=== PATIENT | female | born 1995 | race Caucasian/White ===

== ENCOUNTER 2018-10-27 15:15 | Emergency (ER) ==
[2018-10-27 15:25] VITALS: BP 142/88; TEMP 98.7; BMI 11.3
[2018-10-27] MEDS: SODIUM CHLORIDE 1,000 ML IV STA (16:16)
[2018-10-27] MEDS: PROTONIX IV IVP STA (16:17)
[2018-10-27] MEDS: PEPCID IVP STA (16:17)
[2018-10-27] MEDS: PHENERGAN 25 MG/ML VIAL 12.5 MG in SODIUM CHLORIDE 50 ML IV STA (16:18)
[2018-10-27] MEDS: PHENERGAN 25 MG/ML VIAL ONE (16:19)
--- NOTE | 2018-10-27 17:00 | CT ---
EXAM: CT abdomen and pelvis without intravenous contrast 10/27/2018. Sagittal and coronal reformatt ed images obtained HISTORY: Abdominal pain COMPARISON: None. FINDINGS: The liver shows no acute abnormality the gallbladder has been removed. The adrenal glands and kidneys show no acute abnormality. No hydronephrosis. The spleen and pancreas show no acute process. There is no bowel obstruction. The appendix is cheryl l. Unremarkable urinary bladder. Tampon is in place. No free air or free fluid. IMPRESSION: 1. No urinary or bowel obstruction and normal appendix. 2. Tampon is in place. 3. No acute inflammatory process identified within the abdomen or pelvis within the limitation of a noncontrast enhanced examination.
--- NOTE | 2018-10-27 18:06 | ED.PDOC ---
General ED Provider: Dr. JEN ANNE-ER Chief Complaint: Psychiatric Complaint Stated Complaint: my belly hurts--i drank a lot of etoh last night Time Seen by Physician: 15:20 Mode of Arrival: Carried Information Source: Patient, Other Exam Limitations: No limitations Nursing and Triage Documentation Reviewed and Agree: Yes Does patient meet sepsis criteria?: No System Inflammatory Response Syndrome: Not Applicable Sepsis Protocol: For patient's 13 years and over: Temp is 96.8 and below OR 101 and greater Pulse >90 BPM Resp >20/minute Acutely Altered Mental Status Are patient's symptoms suggestive of a new infection, such as: -Pneumonia -Skin, Soft Tissue -Endocarditis -UTI -Bone, Joint Infection -Implantable Device -Acute Abdominal Infection -Wound Infection -Meningitis -Blood Stream Catheter Infection -Unknown GI Complaint Exam - Abdominal Pain Complaint/Exam Onset: Gradual Duration: 3 hours Symptoms Are: Still present Timing: Constant Initial Severity: Mild Current Severity: Mild Location of Pain: Diffuse Character: Reports: Dull, Aching, Burning, Cramping Alleviating: Reports: Spontaneous resolution Associated Signs and Symptoms: Denies: Diaphoresis, Fever, Cough, Chest pain, Dizziness, Back pain, Constipation, Blood in stool, Dysuria, Urinary frequency, Decreased urine output, Decreased appetite, Vaginal bleeding, Vaginal discharge , Nausea, Vomiting, Diarrhea, Sore throat, Decreased activity Differential Diagnoses: Other Review of Systems - Review Of Systems Constitutional: Reports: No symptoms Eyes: Reports: No symptoms Ears, Nose, Mouth, Throat: Reports: No symptoms Respiratory: Reports: No symptoms Cardiac: Reports: No symptoms GI: Reports: Abdominal pain, Nausea : Reports: No symptoms Musculoskeletal: Reports: No symptoms Skin: Reports: No symptoms Neurological: Reports: No symptoms Endocrine: Reports: No symptoms Hematologic/Lymphatic: Reports: No symptoms All Other Systems: Reviewed and Negative Past Medical History - Past Medical History Previously Healthy: No Endocrine: Reports: Unknown Cardiovascular: Reports: Unknown Respiratory: Reports: Unknown Hematological: Reports: Unknown Gastrointestinal: Reports: Unknown Genitourinary: Reports: Unknown Neuro/Psych: Reports: Unknown Musculoskeletal: Reports: Unknown Cancer: Reports: Unknown Last Menstrual Period: NOW - Surgical History General Surgical History: Reports: Unknown - Family History Family History: Reports: Unknown - Social History Smoking Status: Vaping Hx Substance Use: No Alcohol Screening: Occasionally Physical Exam - Physical Exam Appearance: Well-appearing, No pain distress, Well-nourished Pain Distress: Mild Eyes: ROBER, EOMI, Conjunctiva clear ENT: Ears normal, Nose normal, Oropharynx normal Neck: Supple Respiratory: Airway patent, Breath sounds clear, Breath sounds equal, Respirations nonlabored Cardiovascular: RRR, Pulses normal, No rub, No murmur GI/: Soft, Tender Musculoskeletal: Normal strength, ROM intact, No edema, No calf tenderness Skin: Warm, Dry, Normal color Neurological: Sensation intact, Motor intact, Reflexes intact, Cranial nerves intact, Alert, Oriented Psychiatric: Affect appropriate, Mood appropriate Interpretation - Radiology Interpretation Radiology Interpretation By: Radiologist Radiology Results: Negative Exam Interpreted: CT Scan Re-Evaluation - Re-Evaluation Time of Re-Evaluation: 18:06 Status: Improved Vital Signs Stable: Yes Pain Level: 1 Appearance: NAD Lungs: Clear Skin: Warm and Dry Neuro: Alert and Oriented X3 CV: RRR Critical Care Note - Critical Care Note Total Time (mins): 0 Course - Course Hematology/Chemistry: 10/27/18 15:43 10/27/18 15:43 Orders, Labs, Meds: Lab Review 10/27/18 10/27/18 10/27/18 15:43 15:43 15:43 WBC 7.80 RBC 3.85 L Hgb 12.0 Hct 36.1 L MCV 93.8 MCH 31.2 H MCHC 33.2 RDW Coeff of Tangela 13.0 Plt Count 300 Immature Gran % (Auto) 0.3 Neut % (Auto) 70.8 Lymph % (Auto) 20.8 [place] % (Auto) 6.3 Eos % (Auto) 0.9 Baso % (Auto) 0.9 Immature Gran # (Auto) 0.0 Neut # (Auto) 5.5 Lymph # (Auto) 1.6 [place] # (Auto) 0.5 Eos # (Auto) 0.1 Baso # (Auto) 0.1 ESR 5 Sodium 140.2 Potassium 4.00 Chloride 105.5 Carbon Dioxide 23.2 Anion Gap 15.50 BUN 12.1 Creatinine 0.65 Estimated GFR (MDRD) 112.00 BUN/Creatinine Ratio 18.61 Glucose 98.8 Calcium 9.31 Total Bilirubin 0.30 AST 29.3 ALT 17.6 Alkaline Phosphatase 64.0 Total Protein 6.90 Albumin 4.28 Globulin 2.62 Albumin/Globulin Ratio 1.63 Amylase 111.3 H Lipase 54.5 Serum , Qual Negative Urine Color Urine Clarity Urine pH Ur Specific [place] Urine Protein Urine Glucose (UA) Urine Ketones Urine Blood Urine Nitrite Urine Bilirubin Urine Urobilinogen Ur Leukocyte Esterase Urine Microscopic RBC Urine Microscopic WBC Ur Squamous Epith Cells Ur Transition Epith Cell Urine Bacteria Urine Opiates Screen Ur Oxycodone Screen Urine Methadone Screen Ur Propoxyphene Screen Ur Barbiturates Screen U Tricyclic Antidepress Ur Phencyclidine Scrn Ur Amphetamine Screen U Methamphetamines Scrn U Benzodiazepines Scrn Urine Cocaine Screen U Cannabinoids Screen Plasma/Serum Alcohol 10/27/18 10/27/18 10/27/18 15:43 17:34 17:34 WBC RBC Hgb Hct MCV MCH MCHC RDW Coeff of Tangela Plt Count Immature Gran % (Auto) Neut % (Auto) Lymph % (Auto) [place] % (Auto) Eos % (Auto) Baso % (Auto) Immature Gran # (Auto) Neut # (Auto) Lymph # (Auto) [place] # (Auto) Eos # (Auto) Baso # (Auto) ESR Sodium Potassium Chloride Carbon Dioxide Anion Gap BUN Creatinine Estimated GFR (MDRD) BUN/Creatinine Ratio Glucose Calcium Total Bilirubin AST ALT Alkaline Phosphatase Total Protein Albumin Globulin Albumin/Globulin Ratio Amylase Lipase Serum , Qual Urine Color Yellow Urine Clarity Clear Urine pH 7.0 Ur Specific [place] 1.015 Urine Protein Negative Urine Glucose (UA) Negative Urine Ketones Negative Urine Blood Trace-intact Urine Nitrite Negative Urine Bilirubin Negative Urine Urobilinogen 0.2 Ur Leukocyte Esterase Negative Urine Microscopic RBC 5-10 Urine Microscopic WBC 0-2 Ur Squamous Epith Cells 10-20 Ur Transition Epith Cell 0-2 Urine Bacteria Trace Urine Opiates Screen Negative Ur Oxycodone Screen Negative Urine Methadone Screen Negative Ur Propoxyphene Screen Negative Ur Barbiturates Screen Negative U Tricyclic Antidepress Negative Ur Phencyclidine Scrn Negative Ur Amphetamine Screen Negative U Methamphetamines Scrn Negative U Benzodiazepines Scrn Negative Urine Cocaine Screen Negative U Cannabinoids Screen Negative Plasma/Serum Alcohol < 10.0 Orders Category Date Time Status IV [ED IV/MEDIPORT/POWERPORT] .ONCE EMERGENCY 10/27/18 15:34 Active AMYLASE Stat LAB 10/27/18 15:43 Completed CBC W/ AUTO DIFF Stat LAB 10/27/18 15:43 Completed COMPREHENSIVE METABOLIC PANEL Stat LAB 10/27/18 15:43 Completed ESR Stat LAB 10/27/18 15:43 Completed ETOH LEVEL [BLOOD ALCOHOL] Stat LAB 10/27/18 15:43 Completed LIPASE Stat LAB 10/27/18 15:43 Completed SERUM Stat LAB 10/27/18 15:43 Completed URINALYSIS C & S IF INDICATED Stat LAB 10/27/18 17:34 Completed URINE DRUG SCREEN (RAPID FOR ED) [DRUG SCREEN, URINE, LAB 10/27/18 17:34 Completed RAPID] Stat 0.9 % Sodium Chloride [Saline Flush] MEDS 10/27/18 15:34 Ordered 1 syr IVF PRN PRN Famotidine Inj [Pepcid] MEDS 10/27/18 15:35 Discontinued 20 mg IVP ONCE STA Pantoprazole Sodium [Protonix IV] MEDS 10/27/18 15:34 Discontinued 40 mg IVP ONCE STA Promethazine HCl [Phenergan 25 mg/ml Vial] MEDS 10/27/18 15:54 Discontinued 25 mg .ROUTE .STK-MED ONE Promethazine HCl [Phenergan 25 mg/ml Vial] 12.5 mg MEDS 10/27/18 15:35 Discontinued 0.9 % Sodium Chloride [Sodium Chloride] 50 ml IV ONCE Sodium Chloride 0.9% [Sodium Chloride] 1,000 ml MEDS 10/27/18 15:[address] ABDOMEN/PELVIS WO CONTRAST Stat RADS 10/27/18 15:35 Completed Medications Generic Name Dose Route Start Last Admin Trade Name Freq PRN Reason Stop Dose Admin Sodium Chloride 1 syr 10/27/18 15:34 10/27/18 16:16 Saline Flush IVF 1 syr PRN PRN Administration To flush IV Discontinued Medications Generic Name Dose Route Start Last Admin Trade Name Freq PRN Reason Stop Dose Admin Famotidine 20 mg 10/27/18 15:35 10/27/18 16:17 Pepcid IVP 10/27/18 15:36 20 mg ONCE STA Administration Promethazine HCl 12.5 mg/ 50.5 mls @ 75 mls/hr 10/27/18 15:35 10/27/18 16:18 Sodium Chloride IV 10/27/18 16:15 75 mls/hr ONCE STA Administration Sodium Chloride 1,000 mls @ 500 mls/hr 10/27/18 15:34 10/27/18 16:16 Sodium Chloride IV 10/27/18 17:33 500 mls/hr BOLUS STA Administration Pantoprazole Sodium 40 mg 10/27/18 15:34 10/27/18 16:17 Protonix Iv IVP 10/27/18 15:35 40 mg ONCE STA Administration Vital Signs: Temp Pulse Resp BP Pulse Ox 10/27/18 15:17 98.7 F 120 H 40 H 142/88 H 98 Departure - Departure Time of Disposition: 18:06 Disposition: HOME SELF-CARE Discharge Problem: Gastritis Qualifiers: Gastritis type: alcoholic Chronicity: acute Gastritis bleeding: without bleeding Qualified Code(s): K29.20 - Alcoholic gastritis without bleeding Instructions: Gastritis (ED) Condition: Good Pt referred to PMD for follow-up: Yes IPMP verified?: No Additional Instructions: zantac 150mg bid #30--drink plenty of fluids--f/u with pcp Allergies/Adverse Reactions: Allergies morphine Adverse Reaction (Verified 10/27/18 15:25) Home Medications: Ambulatory Orders Buspirone HCl [Buspar] 15 mg PO BID 10/27/18 Sertraline HCl [Zoloft] 50 mg PO DAILY 10/27/18 Disposition Discussed With: Patient, Family
== END 2018-10-27 18:15 | disposition home or self-care (01) ==
LOC: ED 15:15
DX: K29.20 Alcoholic gastritis without bleeding (principal); Z72.0 Tobacco use
CPT/HCPCS: 36415; 80053; 80306; 80307; 81001; 82150; 83690; 84703; 85025; 85651; 96361; 96365; 96375; 99284